=== PATIENT | male | born 1955 | race Hispanic/Latino ===

== ENCOUNTER → 2020-03-21 | Outpatient (CLI) | payer OTHER, MEDICARE | END | disposition home or self-care (01) | LOC: RAH 13:02 | PROVIDERS: ATTEND Internal Medicine | DX: M19.071 Primary osteoarthritis, right ankle and foot (principal); M79.89 Other specified soft tissue disorders; R22.41 Localized swelling, mass and lump, right lower limb | CPT/HCPCS: 73620; 93971 ==

== ENCOUNTER → 2022-03-08 | Outpatient (CLI) | payer OTHER, MEDICARE ==
[~2022-03-08] MED LIST: BACL20TA PO; BISA-72 PO; BUSP10TA3 PO; CHOL100040 PO; CLIN300C3 PO; DEBROX OT; HONEY 1 APPL/ML TUBE TP ONE; KETO-100 OP; LEVE10006 PO; LEVO-70 PO; LIDOCAINE HCL 4% LTA SOL 4 ML VIAL TP ONE; LINA145C PO; LORA0.5T83 PO; LORA10TA7 PO; POLY17PO4 PO; PYRI100L2 PO; QUET200T PO; [UNRECOGNIZED DRUG - CODE] TP
== END | disposition home or self-care (01) ==
LOC: WHH 11:05
PROVIDERS: ATTEND Family Medicine
DX: S61.451A Open bite of right hand, initial encounter (principal); S61.501A Unspecified open wound of right wrist, initial encounter; G80.8 Other cerebral palsy; G40.909 Epilepsy, unspecified, not intractable, without status epilepticus; E78.2 Mixed hyperlipidemia; K58.1 Irritable bowel syndrome with constipation; M19.071 Primary osteoarthritis, right ankle and foot; F41.9 Anxiety disorder, unspecified; F79 Unspecified intellectual disabilities; Z99.3 Dependence on wheelchair; Z79.899 Other long term (current) drug therapy; Z88.0 Allergy status to penicillin; Z88.7 Allergy status to serum and vaccine; X83.8XXA Intentional self-harm by other specified means, initial encounter; Y93.89 Activity, other specified; Y92.89 Other specified places as the place of occurrence of the external cause; Y99.8 Other external cause status
CPT/HCPCS: 11042; A4450

== ENCOUNTER → 2022-03-15 | Outpatient (CLI) | payer OTHER, MEDICARE ==
[~2022-03-15] MED LIST changes: -HONEY 1 APPL/ML TUBE TP ONE
== END | disposition home or self-care (01) ==
LOC: WHH 10:05
PROVIDERS: ATTEND Family Medicine
DX: S61.451D Open bite of right hand, subsequent encounter (principal); S61.501D Unspecified open wound of right wrist, subsequent encounter; S61.401A Unspecified open wound of right hand, initial encounter; G80.8 Other cerebral palsy; G40.909 Epilepsy, unspecified, not intractable, without status epilepticus; E78.2 Mixed hyperlipidemia; K58.1 Irritable bowel syndrome with constipation; M19.071 Primary osteoarthritis, right ankle and foot; F41.9 Anxiety disorder, unspecified; F79 Unspecified intellectual disabilities; Z99.3 Dependence on wheelchair; Z79.899 Other long term (current) drug therapy; Z88.0 Allergy status to penicillin; Z88.7 Allergy status to serum and vaccine; X83.8XXD Intentional self-harm by other specified means, subsequent encounter; X58.XXXA Exposure to other specified factors, initial encounter; Y93.89 Activity, other specified; Y92.89 Other specified places as the place of occurrence of the external cause; Y99.8 Other external cause status
CPT/HCPCS: 11042

== ENCOUNTER → 2022-03-29 | Outpatient (CLI) | payer OTHER, MEDICARE | END | disposition home or self-care (01) | LOC: WHH 09:58 | PROVIDERS: ATTEND Family Medicine | DX: S61.451D Open bite of right hand, subsequent encounter (principal); S61.501D Unspecified open wound of right wrist, subsequent encounter; S61.401D Unspecified open wound of right hand, subsequent encounter; G80.8 Other cerebral palsy; G40.909 Epilepsy, unspecified, not intractable, without status epilepticus; E78.2 Mixed hyperlipidemia; K58.1 Irritable bowel syndrome with constipation; M19.071 Primary osteoarthritis, right ankle and foot; F41.9 Anxiety disorder, unspecified; F79 Unspecified intellectual disabilities; Z99.3 Dependence on wheelchair; Z79.899 Other long term (current) drug therapy; Z88.0 Allergy status to penicillin; Z88.7 Allergy status to serum and vaccine; X83.8XXD Intentional self-harm by other specified means, subsequent encounter; X58.XXXD Exposure to other specified factors, subsequent encounter | CPT/HCPCS: 11042 ==

== ENCOUNTER → 2022-04-05 | Outpatient (CLI) | payer OTHER, MEDICARE | END | disposition home or self-care (01) | LOC: WHH 10:11 | PROVIDERS: ATTEND Family Medicine | DX: S61.451D Open bite of right hand, subsequent encounter (principal); S61.501D Unspecified open wound of right wrist, subsequent encounter; S61.401D Unspecified open wound of right hand, subsequent encounter; G80.8 Other cerebral palsy; G40.909 Epilepsy, unspecified, not intractable, without status epilepticus; E78.2 Mixed hyperlipidemia; K58.1 Irritable bowel syndrome with constipation; M19.071 Primary osteoarthritis, right ankle and foot; F41.9 Anxiety disorder, unspecified; F79 Unspecified intellectual disabilities; Z99.3 Dependence on wheelchair; Z79.899 Other long term (current) drug therapy; Z88.0 Allergy status to penicillin; Z88.7 Allergy status to serum and vaccine; X58.XXXD Exposure to other specified factors, subsequent encounter; X83.8XXD Intentional self-harm by other specified means, subsequent encounter | CPT/HCPCS: 11042 ==

== ENCOUNTER → 2022-04-19 | Outpatient (CLI) | payer OTHER, MEDICARE ==
[~2022-04-19] MED LIST changes: -LIDOCAINE HCL 4% LTA SOL 4 ML VIAL TP ONE
== END | disposition home or self-care (01) ==
LOC: WHH 09:59
PROVIDERS: ATTEND Family Medicine
DX: S61.451D Open bite of right hand, subsequent encounter (principal); S61.551D Open bite of right wrist, subsequent encounter; S61.501D Unspecified open wound of right wrist, subsequent encounter; S61.401D Unspecified open wound of right hand, subsequent encounter; G80.8 Other cerebral palsy; G40.909 Epilepsy, unspecified, not intractable, without status epilepticus; E78.2 Mixed hyperlipidemia; K58.1 Irritable bowel syndrome with constipation; M19.071 Primary osteoarthritis, right ankle and foot; F41.9 Anxiety disorder, unspecified; F79 Unspecified intellectual disabilities; Z99.3 Dependence on wheelchair; Z79.899 Other long term (current) drug therapy; Z88.0 Allergy status to penicillin; Z88.7 Allergy status to serum and vaccine; X58.XXXD Exposure to other specified factors, subsequent encounter; X83.8XXD Intentional self-harm by other specified means, subsequent encounter
CPT/HCPCS: G0463

== ENCOUNTER → 2022-05-10 | Outpatient (CLI) | payer OTHER, MEDICARE ==
[~2022-05-10] MED LIST changes: +LIDOCAINE HCL 4% LTA SOL 4 ML VIAL TP ONE
== END | disposition home or self-care (01) ==
LOC: WHH 10:08
PROVIDERS: ATTEND Family Medicine
DX: S61.401D Unspecified open wound of right hand, subsequent encounter (principal); S61.501D Unspecified open wound of right wrist, subsequent encounter; G80.9 Cerebral palsy, unspecified; G40.909 Epilepsy, unspecified, not intractable, without status epilepticus; E78.2 Mixed hyperlipidemia; K58.1 Irritable bowel syndrome with constipation; M19.071 Primary osteoarthritis, right ankle and foot; F41.9 Anxiety disorder, unspecified; F79 Unspecified intellectual disabilities; Z79.899 Other long term (current) drug therapy; Z99.3 Dependence on wheelchair; X58.XXXD Exposure to other specified factors, subsequent encounter
CPT/HCPCS: 11042; A4450

== ENCOUNTER → 2022-05-17 | Outpatient (CLI) | payer OTHER, MEDICARE | END | disposition home or self-care (01) | LOC: WHH 09:56 | PROVIDERS: ATTEND Family Medicine | DX: S61.401D Unspecified open wound of right hand, subsequent encounter (principal); S61.501D Unspecified open wound of right wrist, subsequent encounter; G80.9 Cerebral palsy, unspecified; G40.909 Epilepsy, unspecified, not intractable, without status epilepticus; E78.2 Mixed hyperlipidemia; K58.1 Irritable bowel syndrome with constipation; M19.071 Primary osteoarthritis, right ankle and foot; F41.9 Anxiety disorder, unspecified; F79 Unspecified intellectual disabilities; Z79.899 Other long term (current) drug therapy; Z99.3 Dependence on wheelchair; X58.XXXD Exposure to other specified factors, subsequent encounter | CPT/HCPCS: G0463; A4450 ==

== ENCOUNTER → 2022-05-24 | Outpatient (CLI) | payer OTHER, MEDICARE ==
[~2022-05-24] MED LIST changes: -LIDOCAINE HCL 4% LTA SOL 4 ML VIAL TP ONE
== END | disposition home or self-care (01) ==
LOC: WHH 09:22
PROVIDERS: ATTEND Family Medicine
DX: S61.401D Unspecified open wound of right hand, subsequent encounter (principal); S61.501D Unspecified open wound of right wrist, subsequent encounter; G80.9 Cerebral palsy, unspecified; G40.909 Epilepsy, unspecified, not intractable, without status epilepticus; E78.2 Mixed hyperlipidemia; K58.1 Irritable bowel syndrome with constipation; M19.071 Primary osteoarthritis, right ankle and foot; F41.9 Anxiety disorder, unspecified; F79 Unspecified intellectual disabilities; Z79.899 Other long term (current) drug therapy; Z99.3 Dependence on wheelchair; X58.XXXD Exposure to other specified factors, subsequent encounter
CPT/HCPCS: G0463

== ENCOUNTER → 2022-07-29 | Outpatient (CLI) | payer OTHER, MEDICARE ==
[~2022-07-29] MED LIST changes: +HONEY 1 APPL/ML TUBE TP ONE; +LIDOCAINE HCL 4% LTA SOL 4 ML VIAL TP ONE
== END | disposition home or self-care (01) ==
LOC: WHH 09:55
PROVIDERS: ATTEND Family Medicine
DX: S61.451D Open bite of right hand, subsequent encounter (principal); G80.9 Cerebral palsy, unspecified; G40.909 Epilepsy, unspecified, not intractable, without status epilepticus; E78.2 Mixed hyperlipidemia; K58.1 Irritable bowel syndrome with constipation; M19.071 Primary osteoarthritis, right ankle and foot; F41.9 Anxiety disorder, unspecified; F79 Unspecified intellectual disabilities; Z79.899 Other long term (current) drug therapy; Z99.3 Dependence on wheelchair; W50.3XXD Accidental bite by another person, subsequent encounter
CPT/HCPCS: G0463

== ENCOUNTER → 2022-08-05 | Outpatient (CLI) | payer OTHER, MEDICARE ==
[~2022-08-05] MED LIST changes: -HONEY 1 APPL/ML TUBE TP ONE; -LIDOCAINE HCL 4% LTA SOL 4 ML VIAL TP ONE
== END | disposition home or self-care (01) ==
LOC: WHH 13:37
PROVIDERS: ATTEND Family Medicine
DX: S61.451D Open bite of right hand, subsequent encounter (principal); S61.501D Unspecified open wound of right wrist, subsequent encounter; G80.9 Cerebral palsy, unspecified; G40.909 Epilepsy, unspecified, not intractable, without status epilepticus; E78.2 Mixed hyperlipidemia; K58.1 Irritable bowel syndrome with constipation; M19.071 Primary osteoarthritis, right ankle and foot; F41.9 Anxiety disorder, unspecified; F79 Unspecified intellectual disabilities; Z79.899 Other long term (current) drug therapy; Z99.3 Dependence on wheelchair; Y04.1XXD Assault by human bite, subsequent encounter
CPT/HCPCS: G0463

== ENCOUNTER → 2022-08-12 | Outpatient (CLI) | payer OTHER, MEDICARE ==
[~2022-08-12] MED LIST changes: +LIDOCAINE HCL 4% LTA SOL 4 ML VIAL TP ONE
== END | disposition home or self-care (01) ==
LOC: WHH 10:08
PROVIDERS: ATTEND Family Medicine
DX: S61.451D Open bite of right hand, subsequent encounter (principal); S61.501D Unspecified open wound of right wrist, subsequent encounter; S61.401D Unspecified open wound of right hand, subsequent encounter; G80.9 Cerebral palsy, unspecified; G40.909 Epilepsy, unspecified, not intractable, without status epilepticus; E78.2 Mixed hyperlipidemia; K58.1 Irritable bowel syndrome with constipation; M19.071 Primary osteoarthritis, right ankle and foot; F41.9 Anxiety disorder, unspecified; F79 Unspecified intellectual disabilities; Z79.899 Other long term (current) drug therapy; Z99.3 Dependence on wheelchair; Y04.1XXD Assault by human bite, subsequent encounter
CPT/HCPCS: G0463

== ENCOUNTER → 2022-08-26 | Outpatient (CLI) | payer OTHER, MEDICARE | END | disposition home or self-care (01) | LOC: WHH 10:11 | PROVIDERS: ATTEND Family Medicine | DX: S61.451D Open bite of right hand, subsequent encounter (principal); S61.501D Unspecified open wound of right wrist, subsequent encounter; S61.401D Unspecified open wound of right hand, subsequent encounter; G80.9 Cerebral palsy, unspecified; G40.909 Epilepsy, unspecified, not intractable, without status epilepticus; E78.5 Hyperlipidemia, unspecified; K58.1 Irritable bowel syndrome with constipation; M19.071 Primary osteoarthritis, right ankle and foot; F41.9 Anxiety disorder, unspecified; F79 Unspecified intellectual disabilities; Z79.899 Other long term (current) drug therapy; Z99.3 Dependence on wheelchair; Y04.1XXD Assault by human bite, subsequent encounter | CPT/HCPCS: 11042; A6021; A6197; A4450 ==

== ENCOUNTER → 2022-09-02 | Outpatient (CLI) | payer OTHER, MEDICARE ==
[~2022-09-02] MED LIST changes: -LIDOCAINE HCL 4% LTA SOL 4 ML VIAL TP ONE
== END | disposition home or self-care (01) ==
LOC: WHH 10:04
PROVIDERS: ATTEND Family Medicine
DX: S61.451D Open bite of right hand, subsequent encounter (principal); S61.501D Unspecified open wound of right wrist, subsequent encounter; S61.401D Unspecified open wound of right hand, subsequent encounter; G80.9 Cerebral palsy, unspecified; G40.909 Epilepsy, unspecified, not intractable, without status epilepticus; E78.5 Hyperlipidemia, unspecified; K58.1 Irritable bowel syndrome with constipation; M19.071 Primary osteoarthritis, right ankle and foot; F41.9 Anxiety disorder, unspecified; F79 Unspecified intellectual disabilities; Z79.899 Other long term (current) drug therapy; Z99.3 Dependence on wheelchair; Y04.1XXD Assault by human bite, subsequent encounter
CPT/HCPCS: G0463

== ENCOUNTER → 2022-09-16 | Outpatient (CLI) | payer OTHER, MEDICARE | END | disposition home or self-care (01) | LOC: WHH 10:04 | PROVIDERS: ATTEND Family Medicine | DX: S61.451D Open bite of right hand, subsequent encounter (principal); S61.551D Open bite of right wrist, subsequent encounter; S61.501D Unspecified open wound of right wrist, subsequent encounter; S61.401D Unspecified open wound of right hand, subsequent encounter; G80.9 Cerebral palsy, unspecified; G40.909 Epilepsy, unspecified, not intractable, without status epilepticus; E78.5 Hyperlipidemia, unspecified; K58.1 Irritable bowel syndrome with constipation; M19.071 Primary osteoarthritis, right ankle and foot; F41.9 Anxiety disorder, unspecified; F79 Unspecified intellectual disabilities; Z79.899 Other long term (current) drug therapy; Z99.3 Dependence on wheelchair; Y04.1XXD Assault by human bite, subsequent encounter | CPT/HCPCS: G0463; A6209; A4450 ==

== ENCOUNTER → 2022-10-07 | Outpatient (CLI) | payer OTHER, MEDICARE ==
[~2022-10-07] MED LIST changes: +HONEY 1 APPL/ML TUBE TP ONE; +LIDOCAINE HCL 4% LTA SOL 4 ML VIAL TP ONE
== END | disposition home or self-care (01) ==
LOC: WHH 10:32
PROVIDERS: ATTEND Family Medicine
DX: L89.892 Pressure ulcer of other site, stage 2 (principal); S61.451D Open bite of right hand, subsequent encounter; S61.551D Open bite of right wrist, subsequent encounter; S61.501D Unspecified open wound of right wrist, subsequent encounter; S61.401D Unspecified open wound of right hand, subsequent encounter; G80.9 Cerebral palsy, unspecified; G40.909 Epilepsy, unspecified, not intractable, without status epilepticus; E78.5 Hyperlipidemia, unspecified; K58.1 Irritable bowel syndrome with constipation; M19.071 Primary osteoarthritis, right ankle and foot; F41.9 Anxiety disorder, unspecified; F79 Unspecified intellectual disabilities; Z79.899 Other long term (current) drug therapy; Z99.3 Dependence on wheelchair; Y04.1XXD Assault by human bite, subsequent encounter
CPT/HCPCS: 11042; A6209

== ENCOUNTER → 2022-10-14 | Outpatient (CLI) | payer OTHER, MEDICARE | END | disposition home or self-care (01) | LOC: WHH 09:54 | PROVIDERS: ATTEND Family Medicine | DX: S61.451D Open bite of right hand, subsequent encounter (principal); S61.551D Open bite of right wrist, subsequent encounter; L89.892 Pressure ulcer of other site, stage 2; G80.9 Cerebral palsy, unspecified; G40.909 Epilepsy, unspecified, not intractable, without status epilepticus; E78.5 Hyperlipidemia, unspecified; K58.1 Irritable bowel syndrome with constipation; M19.071 Primary osteoarthritis, right ankle and foot; F41.9 Anxiety disorder, unspecified; F79 Unspecified intellectual disabilities; Z79.899 Other long term (current) drug therapy; Z99.3 Dependence on wheelchair; Y04.1XXD Assault by human bite, subsequent encounter | CPT/HCPCS: G0463; A6209 ==

== ENCOUNTER → 2022-11-04 | Outpatient (CLI) | payer OTHER, MEDICARE ==
[~2022-11-04] MED LIST changes: -HONEY 1 APPL/ML TUBE TP ONE
== END | disposition home or self-care (01) ==
LOC: WHH 09:53
PROVIDERS: ATTEND Nurse Practitioner Family
DX: S61.451D Open bite of right hand, subsequent encounter (principal); S61.551D Open bite of right wrist, subsequent encounter; L89.892 Pressure ulcer of other site, stage 2; G80.9 Cerebral palsy, unspecified; G40.909 Epilepsy, unspecified, not intractable, without status epilepticus; E78.5 Hyperlipidemia, unspecified; K58.1 Irritable bowel syndrome with constipation; M19.071 Primary osteoarthritis, right ankle and foot; F41.9 Anxiety disorder, unspecified; F79 Unspecified intellectual disabilities; Z79.899 Other long term (current) drug therapy; Z99.3 Dependence on wheelchair; Y04.1XXD Assault by human bite, subsequent encounter
CPT/HCPCS: G0463; A6209; A4450

== ENCOUNTER → 2022-11-25 | Outpatient (CLI) | payer OTHER, MEDICARE | END | disposition home or self-care (01) | LOC: WHH 10:38 | PROVIDERS: ATTEND Nurse Practitioner Family | DX: S61.451D Open bite of right hand, subsequent encounter (principal); S61.551D Open bite of right wrist, subsequent encounter; L89.892 Pressure ulcer of other site, stage 2; G80.9 Cerebral palsy, unspecified; G40.909 Epilepsy, unspecified, not intractable, without status epilepticus; E78.5 Hyperlipidemia, unspecified; K58.1 Irritable bowel syndrome with constipation; M19.071 Primary osteoarthritis, right ankle and foot; F41.9 Anxiety disorder, unspecified; Z99.3 Dependence on wheelchair; Z79.899 Other long term (current) drug therapy; Y04.1XXD Assault by human bite, subsequent encounter | CPT/HCPCS: G0463 ==

== ENCOUNTER → 2022-12-09 | Outpatient (CLI) | payer OTHER, MEDICARE ==
[~2022-12-09] MED LIST changes: -LIDOCAINE HCL 4% LTA SOL 4 ML VIAL TP ONE
== END | disposition home or self-care (01) ==
LOC: WHH 10:22
PROVIDERS: ATTEND Nurse Practitioner Family
DX: S61.451D Open bite of right hand, subsequent encounter (principal); S61.551D Open bite of right wrist, subsequent encounter; L89.892 Pressure ulcer of other site, stage 2; G80.9 Cerebral palsy, unspecified; G40.909 Epilepsy, unspecified, not intractable, without status epilepticus; E78.5 Hyperlipidemia, unspecified; K58.1 Irritable bowel syndrome with constipation; G83.9 Paralytic syndrome, unspecified; M19.071 Primary osteoarthritis, right ankle and foot; F41.9 Anxiety disorder, unspecified; Z99.3 Dependence on wheelchair; Z79.899 Other long term (current) drug therapy; Y04.1XXD Assault by human bite, subsequent encounter
CPT/HCPCS: G0463

== ENCOUNTER 2022-12-23 10:19 | Emergency (ER) | payer OTHER, MEDICARE ==
[~2022-12-23] VITALS: Ht 162.6 cm; Wt 63.5 kg
[2022-12-23 11:22] LABS: BASOPHILS % (AUTO) 0.2 % (0.0-5.0); EOSINOPHILS % (AUTO) 0.4 % (0.0-8.0); HEMATOCRIT 39.9 % (42-54); LYMPHOCYTES % (AUTO) 12.4 % (21.0-51.0); MEAN CORPUSCULAR HEMOGLOBIN 31.8 pg (27.0-33.0); MEAN CORPUSCULAR HGB CONC 35.3 g/dL (32.0-36.0); MEAN CORPUSCULAR VOLUME 90.1 fL (79-99); NEUTROPHILS % (AUTO) 70.8 % (40.0-77.0); PLATELET COUNT (AUTO) 107 K/uL (130-400); RED BLOOD CELL COUNT(AUTO) 4.43 MIL/uL (4.50-6.20); RED CELL DISTRIBUTION WIDTH 14.7 % (11.0-15.5)
[2022-12-23] MEDS ORDERED: KETOROLAC 15MG/ML VIAL (15MG/ML) IV ONE (12:00)
[2022-12-23 12:24] LABS: ALBUMIN 3.2 g/dL (3.5-5.0); CREATININE 0.7 mg/dL (0.5-1.5); TOTAL PROTEIN, SERUM 7.2 g/dL (6.0-8.3)
[2022-12-23 12:48] LABS: APPEARANCE,URINE CLEAR (CLEAR); BILIRUBIN,URINE NEGATIVE (NEGATIVE); COLOR,URINE YELLOW (YELLOW); GLUCOSE, URINE (UA) NEGATIVE (NEGATIVE); KETONES,URINE 10 mg/dL (NEGATIVE); LEUKOCYTE ESTERASE ,URINE NEGATIVE Leu/uL (NEGATIVE); NITRATE,URINE NEGATIVE (NEGATIVE); OCCULT BLOOD,URINE NEGATIVE (NEGATIVE); PROTEIN,URINE 10 mg/dL (NEGATIVE); UROBILINOGEN,URINE 0.2 mg/dL (0.2-1.0)
[2022-12-23 13:00] VITALS: BP 149/91
[2022-12-23 13:10] LABS: RBC,URINE 0-1 /HPF (0-1); SQUAMOUS EPITHELIAL CELL,UR RARE /HPF (0-2)
[2022-12-23] MEDS ORDERED: IBUP100O20 PO (15:25)
== END 2022-12-23 16:00 | disposition home or self-care (01) ==
LOC: EDH 10:19
DX: M79.641 Pain in right hand (principal); F79 Unspecified intellectual disabilities; Z79.899 Other long term (current) drug therapy; Z88.0 Allergy status to penicillin; Z88.7 Allergy status to serum and vaccine
CPT/HCPCS: 99285; 70450; 96374; 71045; 80053; 85025; 81001; 36415; 72170; 71250; 74176; J1885

== ENCOUNTER → 2023-02-02 | Outpatient (CLI) | payer OTHER, MEDICARE ==
[~2023-02-02] MED LIST changes: +IBUP100O20 PO
== END | disposition home or self-care (01) ==
LOC: RAH 10:00
PROVIDERS: ATTEND Internal Medicine Gastroenterology
DX: R94.5 Abnormal results of liver function studies (principal); D69.6 Thrombocytopenia, unspecified
CPT/HCPCS: 76700

== ENCOUNTER 2023-02-19 17:11 | Inpatient (IN) | payer MEDICARE, OTHER ==
[~2023-02-19] VITALS: Ht 162.6 cm; Wt 72.0 kg
[2023-02-19 17:26] VITALS: PULSE 111; RESP 18; O2SAT 93
[2023-02-19 17:48] LABS: BASOPHILS # (AUTO) 0.02 K/uL (0.00-0.20); BASOPHILS % (AUTO) 0.7 % (0.0-5.0); HEMATOCRIT 35.8 % (42-54); IMMATURE GRANULOCYTE ABSOLUTE 0.02 K/uL (0-1); LYMPHOCYTES # (AUTO) 0.3 K/uL (1.0-4.8); LYMPHOCYTES % (AUTO) 8.6 % (21.0-51.0); MEAN CORPUSCULAR HEMOGLOBIN 32.2 pg (27.0-33.0); MEAN CORPUSCULAR HGB CONC 34.4 g/dL (32.0-36.0); MEAN CORPUSCULAR VOLUME 93.7 fL (79-99); MONOCYTES # (AUTO) 0.3 K/uL (0.1-1.0); MONOCYTES % (AUTO) 10.3 % (3.0-13.0); NEUTROPHILS # (AUTO) 2.3 K/uL (1.8-7.7); NEUTROPHILS % (AUTO) 79.7 % (40.0-77.0); NUCLEATED RED BLOOD CELLS 0.7 % (0.0-0.19); PLATELET COUNT (AUTO) 79 K/uL (130-400); RED BLOOD CELL COUNT(AUTO) 3.82 MIL/uL (4.50-6.20); RED CELL DISTRIBUTION WIDTH 14.8 % (11.0-15.5); WHITE BLOOD COUNT (AUTO) 2.9 K/uL (4.8-10.8)
[2023-02-19 17:50] LABS: RAPID GROUP A STREP negative (NEGATIVE)
[2023-02-19 17:52] LABS: SARS-CoV-2, RNA, NAAT NEGATIVE SARS CoV-2 (NEGATIVE)
[2023-02-19 17:59] LABS: INFLUENZA TYPE A Negative For Type A (NEGATIVE); INFLUENZA TYPE B Negative For Type B (NEGATIVE)
[2023-02-19] MEDS ORDERED: IPRATROPIUM/ALBUTEROL SULFATE 3 ML SOLUTION IH ONE ×2 (18:00→22:56)
[2023-02-19] MEDS ORDERED: SOLU-MEDROL 125MG VIAL IVP ONE (18:00)
[2023-02-19 18:03] LABS: ADD UA MICROSCOPIC YES; APPEARANCE,URINE CLOUDY (CLEAR); BILIRUBIN,URINE NEGATIVE (NEGATIVE); COLOR,URINE DARK YELLOW (YELLOW); GLUCOSE, URINE (UA) NEGATIVE (NEGATIVE); KETONES,URINE NEGATIVE (NEGATIVE); LEUKOCYTE ESTERASE ,URINE 75 Leu/uL (NEGATIVE); NITRATE,URINE NEGATIVE (NEGATIVE); OCCULT BLOOD,URINE NEGATIVE (NEGATIVE); PH,URINE 5.5 (5.0-8.0); PROTEIN,URINE 20 mg/dL (NEGATIVE); UROBILINOGEN,URINE 0.2 mg/dL (0.2-1.0)
[2023-02-19 18:11] LABS: BACTERIA,URINE MOD /HPF (None Seen); MUCUS,URINE RARE LPF (None Seen); RBC,URINE 0-1 /HPF (0-1)
[2023-02-19 18:23] LABS: ALBUMIN 2.6 g/dL (3.5-5.0); BILIRUBIN,TOTAL 0.8 mg/dL (0.2-1.0); CREATININE 1.1 mg/dL (0.5-1.5); MAGNESIUM 1.6 mg/dL (1.80-2.40); POTASSIUM 4.4 mmol/L (3.5-5.1); TOTAL PROTEIN, SERUM 6.8 g/dL (6.0-8.3)
[2023-02-19] MEDS ORDERED: LACT10SO5 PEG (18:41)
[2023-02-19] MEDS ORDERED: FAMO20TA8 PEG (18:41)
[2023-02-19] MEDS ORDERED: ALBU0.63 IH (18:41)
[2023-02-19] MEDS ORDERED: CLOT15CR23 TP (18:41)
[2023-02-19] MEDS ORDERED: BACL10TA PEG (18:41)
[2023-02-19] MEDS ORDERED: DIAZEPAM GEL TP (18:41)
[2023-02-19] MEDS ORDERED: DIAZEPAM (18:41)
[2023-02-19] MEDS ORDERED: DIAZEPAM 5 MG/ML RC (18:41)
[2023-02-19] MEDS ORDERED: VANCOMYCIN KIT 1 GM/250 ML IV.KIT IV ONE (19:00)
[2023-02-19] MEDS ORDERED: CEFEPIME HCL 2 GM VIAL IVPB SCH (19:00)
[2023-02-19] MEDS ORDERED: 0.9% NACL 500ML IV.SOLN 500 ML IV ONE (19:30)
[2023-02-19 20:03] VITALS: PULSE 99; RESP 19
[2023-02-19 20:11] LABS: ABG BASE EXCESS -4.7 mmol/L (-2.0-3.0); ABG HCO3 21.7 mmol/L (21.0-28.0); ABG OXYGEN SATURATION 98.4 % (95.0-99.0); ABG PCO2 45 mmHg (35-48); ABG PH 7.301 (7.35-7.450); PO2, ARTERIAL BG 135.5 mmHg (83.0-108.0); VENT MODE, BG NRBM (ROOM AIR)
[2023-02-19 20:25] LABS: BAND NEUTROPHILS % (MANUAL) 10 % (0-2); LYMPHOCYTES % (MANUAL) 19 % (22-44); METAMYELOCYTES % 32 % (0-0); MONOCYTES % (MANUAL) 6 % (2-9); SEGMENTED NEUTROPHILS % 33 % (40-70); TOTAL CELLS COUNTED 100
[2023-02-19 20:26] LABS: MAN.DIFF COMMENT-IMPRESSION MANUAL DIFFERENTIAL; PLATELET MORPHOLOGY COMMENT DECREASED; WBC MORPHOLOGY SMUDGE CELLS 1+
[2023-02-19] MEDS ORDERED: ONDANSETRON 4MG INJ IVP PRN (20:30)
[2023-02-19] MEDS ORDERED: VANCOMYCIN PROTOCOL PER PHARMACY IV SCH (20:30)
[2023-02-19] MEDS ORDERED: ACETAMINOPHEN 325 MG TAB PO PRN (20:30)
[2023-02-19] MEDS: 0.9%NACL 1000ML 1,000 ML IV SCH (21:03)
[2023-02-19] MEDS ORDERED: DEXTROSE 50%-WATER 50 ML DISP.SYRIN IV PRN (22:00)
[2023-02-19] MEDS ORDERED: POTASSIUM CHLORIDE 20MEQ/100ML 100 ML IV PRN ×2 (22:00)
[2023-02-19] MEDS ORDERED: GLUCAGON 1MG KIT 1 MG ML IM PRN (22:00)
[2023-02-19] MEDS ORDERED: KCL 20 MEQ ERTAB PO PRN (22:00)
[2023-02-19] MEDS ORDERED: POTASSIUM PHOS 15 mMOL+NS250ML 250 ML IV PRN (22:00)
[2023-02-19 23:01] VITALS: PULSE 89; RESP 18; O2SAT 100
[2023-02-20] VITALS (64 sets, daily range): BP systolic 81–159; BP diastolic 24–108; PULSE 59–114; RESP 13–71; O2SAT 90–100
[2023-02-20] MEDS: CEFEPIME HCL 2 GM VIAL IVPB SCH ×3 (03:42→20:52)
[2023-02-20] MEDS ORDERED: LORAZEPAM 2 MG/ML 1 ML VIAL ONE (04:41)
[2023-02-20] MEDS ORDERED: LEVETIRACETAM 500 MG/5 ML SD VIAL IV ONE ×2 (04:46→05:00)
[2023-02-20] MEDS ORDERED: NOREPINEPHRIN 4MG/NS 250ML 250 ML IV ONE (04:57)
[2023-02-20] MEDS ORDERED: NOREPINEPHRIN 4MG/NS 250ML 250 ML IV SCH (05:00)
[2023-02-20] MEDS ORDERED: LORAZEPAM 2 MG/ML 1 ML VIAL IVP ONE (05:00)
[2023-02-20] MEDS: LORAZEPAM 2 MG/ML 1 ML VIAL IVP PRN ×2 (05:10→08:27)
[2023-02-20] MEDS: 0.9%NACL 1000ML 1,000 ML IV SCH ×3 (05:19→20:30)
[2023-02-20] MEDS: IPRATROPIUM/ALBUTEROL SULFATE 3 ML SOLUTION IH SCH ×4 (07:05→23:14)
[2023-02-20] MEDS: SOLU-MEDROL 40MG VIAL IVP SCH ×2 (08:28→20:52)
[2023-02-20] MEDS: VANCOMYCIN 1G/250ML KIT 250 ML IV SCH ×2 (08:29→20:52)
[2023-02-20 09:19] LABS: ABG BASE EXCESS -0.2 mmol/L (-2.0-3.0); ABG HCO3 23.3 mmol/L (21.0-28.0); ABG OXYGEN SATURATION 99.3 % (95.0-99.0); ABG PCO2 35 mmHg (35-48); ABG PH 7.444 (7.35-7.450); PO2, ARTERIAL BG 183.5 mmHg (83.0-108.0); VENT MODE, BG PNRM (ROOM AIR)
[2023-02-20 09:26] LABS: BASOPHILS # (AUTO) 0.09 K/uL (0.00-0.20); BASOPHILS % (AUTO) 0.8 % (0.0-5.0); HEMATOCRIT 29.2 % (42-54); LYMPHOCYTES # (AUTO) 0.3 K/uL (1.0-4.8); LYMPHOCYTES % (AUTO) 2.8 % (21.0-51.0); MEAN CORPUSCULAR HEMOGLOBIN 31.9 pg (27.0-33.0); MEAN CORPUSCULAR HGB CONC 34.2 g/dL (32.0-36.0); MEAN CORPUSCULAR VOLUME 93.3 fL (79-99); MONOCYTES # (AUTO) 0.9 K/uL (0.1-1.0); MONOCYTES % (AUTO) 8.1 % (3.0-13.0); NEUTROPHILS # (AUTO) 10.1 K/uL (1.8-7.7); NEUTROPHILS % (AUTO) 86.6 % (40.0-77.0); PLATELET COUNT (AUTO) 71 K/uL (130-400); RED BLOOD CELL COUNT(AUTO) 3.13 MIL/uL (4.50-6.20); RED CELL DISTRIBUTION WIDTH 14.9 % (11.0-15.5); WHITE BLOOD COUNT (AUTO) 11.6 K/uL (4.8-10.8)
[2023-02-20 09:33] LABS: CREATININE 0.9 mg/dL (0.5-1.5); POTASSIUM 4.5 mmol/L (3.5-5.1)
[2023-02-20 09:43] LABS: ALBUMIN 2.1 g/dL (3.5-5.0); BILIRUBIN,TOTAL 0.7 mg/dL (0.2-1.0); MAGNESIUM 1.7 mg/dL (1.80-2.40); TOTAL PROTEIN, SERUM 5.8 g/dL (6.0-8.3)
[2023-02-20] MEDS ORDERED: FAMOTIDINE 20MG VIAL IV ONE (11:30)
[2023-02-20] MEDS ORDERED: LACTULOSE 20 GM/30 ML UDCUP PEG PRN (11:30)
[2023-02-20] MEDS ORDERED: DEBROX 6.5% TP SCH (12:00)
[2023-02-20] MEDS ORDERED: 0.9%NACL 1000ML 1,185 ML IV ONE (12:00)
[2023-02-20] MEDS ORDERED: ZINC OXIDE OINT 30GM TUBE TP PRN (12:00)
[2023-02-20] MEDS ORDERED: POLYETHYLENE GLYCOL 3350 17 GM POWD.PACK PO ONE (12:00)
[2023-02-20] MEDS ORDERED: MAGNESIUM 2GM PREMIX 50ML 50 ML IV PRN (13:30)
[2023-02-20] MEDS: CHLORHEXIDINE GLUCONATE 473 ML MOUTHWASH MM SCH ×2 (13:55→17:57)
[2023-02-20] MEDS: LEVETIRACETAM 500 MG in 0.9%NACL 100ML 100 ML IV SCH ×2 (13:55→20:53)
[2023-02-20] MEDS: METRONIDAZOLE 500MG/100ML BAG 100 ML IVPB SCH ×2 (15:11→20:54)
[2023-02-20 20:16] LABS: INR 1.11 (0.85-1.15); PROTHROMBIN TIME 12.8 SEC (9.6-11.6)
[2023-02-20 20:17] LABS: PARTIAL THROMBOPLASTIN TIME 39.3 SEC (26.3-35.5)
[2023-02-20] MEDS: BACLOFEN 10 MG TABLET PEG SCH (20:53)
[2023-02-20] MEDS: PYRIDOXINE HCL 50 MG TABLET PO SCH (20:53)
[2023-02-20] MEDS: ARTIFICIAL TEARS 3.5 GM OINTMENT OU SCH (21:17)
[2023-02-21] VITALS (21 sets, daily range): BP systolic 112–147; BP diastolic 51–102; PULSE 72–100; RESP 16–34; O2SAT 93–96
[2023-02-21] MEDS: CEFEPIME HCL 2 GM VIAL IVPB SCH ×3 (03:30→19:56)
[2023-02-21] MEDS: CHLORHEXIDINE GLUCONATE 473 ML MOUTHWASH MM SCH ×4 (06:00→17:41)
[2023-02-21] MEDS: METRONIDAZOLE 500MG/100ML BAG 100 ML IVPB SCH ×3 (06:00→22:58)
[2023-02-21] MEDS: LEVETIRACETAM 500 MG in 0.9%NACL 100ML 100 ML IV SCH (06:00)
[2023-02-21] MEDS ORDERED: FAMOTIDINE 20MG VIAL IV SCH (09:00)
[2023-02-21] MEDS: BISACODYL 5 MG TABLET.DR PO SCH (09:00)
[2023-02-21] MEDS: POLYETHYLENE GLYCOL 3350 17 GM POWD.PACK PO SCH (09:00)
[2023-02-21] MEDS: SOLU-MEDROL 40MG VIAL IVP SCH ×2 (09:00→19:56)
[2023-02-21] MEDS: FAMOTIDINE 20MG TAB PEG SCH (09:00)
[2023-02-21] MEDS: LEVETIRACETAM 500 MG TABLET PO SCH ×2 (09:00→19:57)
[2023-02-21] MEDS: BACLOFEN 10 MG TABLET PEG SCH ×2 (09:00→19:57)
[2023-02-21] MEDS: PYRIDOXINE HCL 50 MG TABLET PO SCH ×2 (09:00→19:58)
[2023-02-21 10:29] LABS: % IRON SATURATION 34.9 % (30-44)
[2023-02-21] MEDS ORDERED: ALBU2.5V2 IH (11:26)
[2023-02-21] MEDS ORDERED: LORA10TA7 PO (11:26)
[2023-02-21] MEDS ORDERED: QUET300T2 PO (11:26)
[2023-02-21] MEDS ORDERED: LACT10SO5 PEG (11:26)
[2023-02-21] MEDS: IPRATROPIUM/ALBUTEROL SULFATE 3 ML SOLUTION IH SCH ×3 (11:54→23:26)
[2023-02-21] MEDS: 0.9%NACL 1000ML 1,000 ML IV SCH ×2 (12:17→12:26)
[2023-02-21] MEDS: VANCOMYCIN 1G/250ML KIT 250 ML IV SCH ×2 (12:21→19:57)
[2023-02-21] MEDS: ACETAMINOPHEN 325 MG TAB PO PRN (13:38)
[2023-02-21] MEDS: BUSPIRONE HCL 5 MG TABLET PO SCH ×2 (13:40→19:58)
[2023-02-21 14:38] LABS: BASOPHILS # (AUTO) 0.02 K/uL (0.00-0.20); BASOPHILS % (AUTO) 0.2 % (0.0-5.0); HEMATOCRIT 24.6 % (42-54); IMMATURE GRANULOCYTE ABSOLUTE 0.07 K/uL (0-1); LYMPHOCYTES # (AUTO) 0.4 K/uL (1.0-4.8); LYMPHOCYTES % (AUTO) 4.7 % (21.0-51.0); MEAN CORPUSCULAR HEMOGLOBIN 32.3 pg (27.0-33.0); MEAN CORPUSCULAR HGB CONC 34.6 g/dL (32.0-36.0); MEAN CORPUSCULAR VOLUME 93.5 fL (79-99); MONOCYTES # (AUTO) 0.8 K/uL (0.1-1.0); MONOCYTES % (AUTO) 8.6 % (3.0-13.0); NEUTROPHILS # (AUTO) 7.7 K/uL (1.8-7.7); NEUTROPHILS % (AUTO) 85.7 % (40.0-77.0); NUCLEATED RED BLOOD CELLS 0.2 % (0.0-0.19); PLATELET COUNT (AUTO) 57 K/uL (130-400); RED BLOOD CELL COUNT(AUTO) 2.63 MIL/uL (4.50-6.20); RED CELL DISTRIBUTION WIDTH 15.1 % (11.0-15.5)
[2023-02-21] MEDS: POTASSIUM CHLORIDE 10% ELIXIR 20 MEQ/15 ML UDCUP PO PRN ×3 (14:49→17:41)
[2023-02-21 15:51] LABS: ALBUMIN 1.9 g/dL (3.5-5.0); BILIRUBIN,TOTAL 0.6 mg/dL (0.2-1.0); CREATININE 0.7 mg/dL (0.5-1.5); POTASSIUM 3.2 mmol/L (3.5-5.1); TOTAL PROTEIN, SERUM 5.4 g/dL (6.0-8.3)
[2023-02-21 15:55] LABS: RETICULOCYTE % (AUTO) 1.62 % (0.42-2.23)
[2023-02-21 16:07] LABS: MAGNESIUM 1.5 mg/dL (1.80-2.40)
[2023-02-21] MEDS: ARTIFICIAL TEARS 3.5 GM OINTMENT OU SCH (20:21)
[2023-02-21] MEDS ORDERED: IRON SUCROSE COMPLEX 300 MG in 0.9% NACL 250ML 250 ML IV ONE (21:00)
[2023-02-21] MEDS: ACETYLCYSTEINE 10% 100MG/ML 4ML VIAL IH SCH (23:26)
[2023-02-22] VITALS (16 sets, daily range): BP systolic 105–133; BP diastolic 60–74; PULSE 81–99; RESP 20–24; TEMP 100; O2SAT 90–99
[2023-02-22] MEDS: CHLORHEXIDINE GLUCONATE 473 ML MOUTHWASH MM SCH ×4 (00:36→17:09)
[2023-02-22 03:43] LABS: HEMATOCRIT 25.9 % (42-54); MEAN CORPUSCULAR HEMOGLOBIN 32.4 pg (27.0-33.0); MEAN CORPUSCULAR HGB CONC 34.7 g/dL (32.0-36.0); MEAN CORPUSCULAR VOLUME 93.2 fL (79-99); NUCLEATED RED BLOOD CELLS 0.6 % (0.0-0.19); RED BLOOD CELL COUNT(AUTO) 2.78 MIL/uL (4.50-6.20); RED CELL DISTRIBUTION WIDTH 15.4 % (11.0-15.5); WHITE BLOOD COUNT (AUTO) 13.6 K/uL (4.8-10.8)
[2023-02-22] MEDS: CEFEPIME HCL 2 GM VIAL IVPB SCH ×3 (03:57→21:01)
[2023-02-22] MEDS: 0.9%NACL 1000ML 1,000 ML IV SCH (03:57)
[2023-02-22 04:08] LABS: ALBUMIN 1.9 g/dL (3.5-5.0); BILIRUBIN,TOTAL 0.6 mg/dL (0.2-1.0); CREATININE 0.7 mg/dL (0.5-1.5); POTASSIUM 3.3 mmol/L (3.5-5.1); TOTAL PROTEIN, SERUM 5.6 g/dL (6.0-8.3)
[2023-02-22] MEDS: POTASSIUM CHLORIDE 10% ELIXIR 20 MEQ/15 ML UDCUP PO PRN (05:55)
[2023-02-22] MEDS: METRONIDAZOLE 500MG/100ML BAG 100 ML IVPB SCH ×3 (05:55→22:24)
[2023-02-22] MEDS: IPRATROPIUM/ALBUTEROL SULFATE 3 ML SOLUTION IH SCH ×4 (06:30→23:07)
[2023-02-22] MEDS: ACETYLCYSTEINE 10% 100MG/ML 4ML VIAL IH SCH ×4 (06:30→23:07)
[2023-02-22] MEDS: ACETAMINOPHEN 325 MG TAB PO PRN (06:40)
[2023-02-22] MEDS: POLYETHYLENE GLYCOL 3350 17 GM POWD.PACK PO SCH (07:33)
[2023-02-22] MEDS: BISACODYL 5 MG TABLET.DR PO SCH (07:33)
[2023-02-22] MEDS: VANCOMYCIN 1G/250ML KIT 250 ML IV SCH ×2 (07:45→21:02)
[2023-02-22] MEDS: SOLU-MEDROL 40MG VIAL IVP SCH ×2 (07:46→21:02)
[2023-02-22] MEDS: ENOXAPARIN SODIUM 40 MG/0.4 ML SYRINGE SQ SCH (07:47)
[2023-02-22] MEDS: BACLOFEN 10 MG TABLET PEG SCH ×2 (07:47→21:03)
[2023-02-22] MEDS: PYRIDOXINE HCL 50 MG TABLET PO SCH ×2 (07:48→21:03)
[2023-02-22] MEDS: FAMOTIDINE 20MG TAB PEG SCH (07:48)
[2023-02-22] MEDS: LEVETIRACETAM 500 MG TABLET PO SCH ×2 (07:48→21:03)
[2023-02-22] MEDS: BUSPIRONE HCL 5 MG TABLET PO SCH ×3 (07:51→21:03)
[2023-02-22] MEDS ORDERED: IRON SUCROSE COMPLEX 300 MG in 0.9% NACL 250ML 250 ML IV ONE (09:00)
[2023-02-22] MEDS ORDERED: PREDNISONE 20 MG TABLET PEG SCH (21:00)
[2023-02-22] MEDS: ARTIFICIAL TEARS 3.5 GM OINTMENT OU SCH (21:02)
[2023-02-23] VITALS (14 sets, daily range): BP systolic 115–143; BP diastolic 62–76; PULSE 75–97; RESP 20–28; O2SAT 89–98
[2023-02-23] MEDS: IPRATROPIUM 0.5 MG/2.5 ML INH IH SCH
[2023-02-23] MEDS: CHLORHEXIDINE GLUCONATE 473 ML MOUTHWASH MM SCH ×4 (01:51→17:07)
[2023-02-23] MEDS: CEFEPIME HCL 2 GM VIAL IVPB SCH ×2 (03:21→11:14)
[2023-02-23] MEDS: METRONIDAZOLE 500MG/100ML BAG 100 ML IVPB SCH ×2 (05:37→14:12)
[2023-02-23] MEDS: IPRATROPIUM/ALBUTEROL SULFATE 3 ML SOLUTION IH SCH ×2 (07:06→11:04)
[2023-02-23] MEDS: ACETYLCYSTEINE 10% 100MG/ML 4ML VIAL IH SCH ×4 (07:06→23:32)
[2023-02-23 07:29] LABS: HEMATOCRIT 29.5 % (42-54); MEAN CORPUSCULAR HEMOGLOBIN 31.6 pg (27.0-33.0); MEAN CORPUSCULAR HGB CONC 33.2 g/dL (32.0-36.0); MEAN CORPUSCULAR VOLUME 95.2 fL (79-99); NUCLEATED RED BLOOD CELLS 0.5 % (0.0-0.19); RED BLOOD CELL COUNT(AUTO) 3.1 MIL/uL (4.50-6.20); RED CELL DISTRIBUTION WIDTH 15.9 % (11.0-15.5); WHITE BLOOD COUNT (AUTO) 18.7 K/uL (4.8-10.8)
[2023-02-23] MEDS: BISACODYL 5 MG TABLET.DR PO SCH (07:51)
[2023-02-23] MEDS: POLYETHYLENE GLYCOL 3350 17 GM POWD.PACK PO SCH (07:51)
[2023-02-23 07:52] LABS: ALBUMIN 1.8 g/dL (3.5-5.0); BILIRUBIN,TOTAL 0.4 mg/dL (0.2-1.0); CREATININE 0.6 mg/dL (0.5-1.5); MAGNESIUM 2.1 mg/dL (1.80-2.40); POTASSIUM 3.3 mmol/L (3.5-5.1); TOTAL PROTEIN, SERUM 5.4 g/dL (6.0-8.3)
[2023-02-23] MEDS: VANCOMYCIN 1G/250ML KIT 250 ML IV SCH ×2 (08:02→21:30)
[2023-02-23] MEDS: ENOXAPARIN SODIUM 40 MG/0.4 ML SYRINGE SQ SCH (08:02)
[2023-02-23] MEDS: PYRIDOXINE HCL 50 MG TABLET PO SCH ×2 (08:02→21:36)
[2023-02-23] MEDS: SOLU-MEDROL 40MG VIAL IVP SCH ×2 (08:02→21:30)
[2023-02-23] MEDS: BACLOFEN 10 MG TABLET PEG SCH ×2 (08:03→21:36)
[2023-02-23] MEDS: FAMOTIDINE 20MG TAB PEG SCH (08:03)
[2023-02-23] MEDS: LEVETIRACETAM 500 MG TABLET PO SCH ×2 (08:03→21:35)
[2023-02-23] MEDS: BUSPIRONE HCL 5 MG TABLET PO SCH ×3 (08:09→21:35)
[2023-02-23] MEDS: DEXTROSE 5% IV SCH (12:25)
[2023-02-23] MEDS: WATER IV SCH (12:25)
[2023-02-23] MEDS: POTASSIUM CHLORIDE IV SCH (12:25)
[2023-02-23] MEDS: LEVOFLOXACIN 500 MG/D5W 100 ML 100 ML IV SCH (20:39)
[2023-02-23] MEDS: MEROPENEM 1 GM in 0.9%NACL 100ML 100 ML IVPB SCH (21:30)
[2023-02-23] MEDS: ARTIFICIAL TEARS 3.5 GM OINTMENT OU SCH (21:32)
[2023-02-23] MEDS: POTASSIUM CHLORIDE 10% ELIXIR 20 MEQ/15 ML UDCUP PO PRN (21:36)
[2023-02-24] VITALS (17 sets, daily range): BP systolic 112–149; BP diastolic 55–81; PULSE 66–90; RESP 18–37; O2SAT 93–100
[2023-02-24] MEDS: MEROPENEM 1 GM in 0.9%NACL 100ML 100 ML IVPB SCH ×3 (03:00→18:54)
[2023-02-24] MEDS: CHLORHEXIDINE GLUCONATE 473 ML MOUTHWASH MM SCH ×4 (03:00→17:19)
[2023-02-24 04:19] LABS: ABG HCO3 30.1 mmol/L (21.0-28.0); ABG PCO2 62 mmHg (35-48); ABG PH 7.303 (7.35-7.450); PO2, ARTERIAL BG 90.9 mmHg (83.0-108.0); VENT MODE, BG BIPAP 12-6 (ROOM AIR)
[2023-02-24 04:39] LABS: HEMATOCRIT 30.7 % (42-54); MEAN CORPUSCULAR HEMOGLOBIN 32.1 pg (27.0-33.0); MEAN CORPUSCULAR HGB CONC 32.9 g/dL (32.0-36.0); MEAN CORPUSCULAR VOLUME 97.5 fL (79-99); NUCLEATED RED BLOOD CELLS 0.4 % (0.0-0.19); RED BLOOD CELL COUNT(AUTO) 3.15 MIL/uL (4.50-6.20); RED CELL DISTRIBUTION WIDTH 15.7 % (11.0-15.5)
[2023-02-24 04:50] LABS: CREATININE 0.6 mg/dL (0.5-1.5); POTASSIUM 3.7 mmol/L (3.5-5.1)
[2023-02-24] MEDS: POTASSIUM CHLORIDE 10% ELIXIR 20 MEQ/15 ML UDCUP PO PRN (05:21)
[2023-02-24] MEDS: IPRATROPIUM 0.5 MG/2.5 ML INH IH SCH ×3 (07:01→18:36)
[2023-02-24] MEDS: ACETYLCYSTEINE 10% 100MG/ML 4ML VIAL IH SCH ×3 (07:01→18:36)
[2023-02-24] MEDS: LEVETIRACETAM 500 MG TABLET PO SCH ×2 (10:14→20:03)
[2023-02-24] MEDS: SOLU-MEDROL 40MG VIAL IVP SCH ×2 (10:14→19:59)
[2023-02-24] MEDS: BISACODYL 10 MG SUPP.RECT RC SCH (10:14)
[2023-02-24] MEDS: PYRIDOXINE HCL 50 MG TABLET PO SCH ×2 (10:14→20:03)
[2023-02-24] MEDS: POLYETHYLENE GLYCOL 3350 17 GM POWD.PACK PO SCH (10:15)
[2023-02-24] MEDS: FAMOTIDINE 20MG TAB PEG SCH (10:15)
[2023-02-24] MEDS: ENOXAPARIN SODIUM 40 MG/0.4 ML SYRINGE SQ SCH (10:16)
[2023-02-24] MEDS: BACLOFEN 10 MG TABLET PEG SCH ×2 (10:16→20:03)
[2023-02-24] MEDS: BUSPIRONE HCL 5 MG TABLET PO SCH ×3 (10:19→20:03)
[2023-02-24] MEDS: VANCOMYCIN 1G/250ML KIT 250 ML IV SCH ×2 (11:00→20:00)
[2023-02-24] MEDS ORDERED: COMPOUND IV REFRIGERATED 1 EACH IVSOLN MISC PRN ×2 (11:00→12:00)
[2023-02-24] MEDS ORDERED: COMPOUND IV MISC 1 EACH IVSOLN MISC PRN (12:00)
[2023-02-24] MEDS: POTASSIUM CHLORIDE IV SCH (14:01)
[2023-02-24] MEDS: DEXTROSE 5% IV SCH (14:01)
[2023-02-24] MEDS: WATER IV SCH (14:01)
[2023-02-24] MEDS: LEVOFLOXACIN 500 MG/D5W 100 ML 100 ML IV SCH (18:23)
[2023-02-24] MEDS: ARTIFICIAL TEARS 3.5 GM OINTMENT OU SCH (20:03)
[2023-02-25] VITALS (16 sets, daily range): BP systolic 102–134; BP diastolic 62–77; PULSE 62–87; RESP 20–35; O2SAT 91–96
[2023-02-25] MEDS: IPRATROPIUM 0.5 MG/2.5 ML INH IH SCH ×5 (00:55→23:18)
[2023-02-25] MEDS: ACETYLCYSTEINE 10% 100MG/ML 4ML VIAL IH SCH ×5 (00:55→23:18)
[2023-02-25] MEDS: MEROPENEM 1 GM in 0.9%NACL 100ML 100 ML IVPB SCH ×3 (02:31→18:15)
[2023-02-25] MEDS: CHLORHEXIDINE GLUCONATE 473 ML MOUTHWASH MM SCH ×4 (02:31→18:17)
[2023-02-25] MEDS: POTASSIUM CHLORIDE IV SCH (02:32)
[2023-02-25] MEDS: WATER IV SCH (02:32)
[2023-02-25] MEDS: DEXTROSE 5% IV SCH (02:32)
[2023-02-25] MEDS: FAMOTIDINE 20MG TAB PEG SCH (09:59)
[2023-02-25] MEDS: POLYETHYLENE GLYCOL 3350 17 GM POWD.PACK PO SCH (09:59)
[2023-02-25] MEDS: BUSPIRONE HCL 5 MG TABLET PO SCH ×3 (09:59→20:17)
[2023-02-25] MEDS: PYRIDOXINE HCL 50 MG TABLET PO SCH ×2 (09:59→20:17)
[2023-02-25] MEDS: LEVETIRACETAM 500 MG TABLET PO SCH ×2 (09:59→20:17)
[2023-02-25] MEDS: SOLU-MEDROL 40MG VIAL IVP SCH ×2 (09:59→20:17)
[2023-02-25] MEDS: BACLOFEN 10 MG TABLET PEG SCH ×2 (09:59→20:16)
[2023-02-25] MEDS: ENOXAPARIN SODIUM 40 MG/0.4 ML SYRINGE SQ SCH (10:00)
[2023-02-25] MEDS: BISACODYL 10 MG SUPP.RECT RC SCH (10:00)
[2023-02-25] MEDS: VANCOMYCIN 1G/250ML KIT 250 ML IV SCH ×2 (10:01→20:16)
[2023-02-25] MEDS ORDERED: FUROSEMIDE 40MG VIAL IV ONE (11:30)
[2023-02-25 12:11] LABS: BASOPHILS # (AUTO) 0.02 K/uL (0.00-0.20); BASOPHILS % (AUTO) 0.2 % (0.0-5.0); HEMATOCRIT 30.3 % (42-54); IMMATURE GRANULOCYTE ABSOLUTE 0.35 K/uL (0-1); LYMPHOCYTES # (AUTO) 0.9 K/uL (1.0-4.8); LYMPHOCYTES % (AUTO) 6.8 % (21.0-51.0); MEAN CORPUSCULAR HEMOGLOBIN 32.5 pg (27.0-33.0); MEAN CORPUSCULAR HGB CONC 33.7 g/dL (32.0-36.0); MEAN CORPUSCULAR VOLUME 96.5 fL (79-99); MONOCYTES # (AUTO) 0.9 K/uL (0.1-1.0); MONOCYTES % (AUTO) 6.8 % (3.0-13.0); NEUTROPHILS # (AUTO) 10.6 K/uL (1.8-7.7); NEUTROPHILS % (AUTO) 83.4 % (40.0-77.0); NUCLEATED RED BLOOD CELLS 0.3 % (0.0-0.19); PLATELET COUNT (AUTO) 116 K/uL (130-400); RED BLOOD CELL COUNT(AUTO) 3.14 MIL/uL (4.50-6.20); RED CELL DISTRIBUTION WIDTH 15.1 % (11.0-15.5); WHITE BLOOD COUNT (AUTO) 12.7 K/uL (4.8-10.8)
[2023-02-25 12:22] LABS: CREATININE 0.5 mg/dL (0.5-1.5); MAGNESIUM 2.1 mg/dL (1.80-2.40)
[2023-02-25] MEDS: LEVOFLOXACIN 500 MG/D5W 100 ML 100 ML IV SCH (18:15)
[2023-02-25] MEDS: ARTIFICIAL TEARS 3.5 GM OINTMENT OU SCH (20:41)
[2023-02-26] VITALS (14 sets, daily range): BP systolic 106–139; BP diastolic 63–76; PULSE 64–89; RESP 18–28; O2SAT 93–98
[2023-02-26] MEDS: CHLORHEXIDINE GLUCONATE 473 ML MOUTHWASH MM SCH ×5 (03:34→23:20)
[2023-02-26] MEDS: MEROPENEM 1 GM in 0.9%NACL 100ML 100 ML IVPB SCH ×3 (03:34→18:06)
[2023-02-26] MEDS: POTASSIUM CHLORIDE IV SCH ×2 (06:14→18:07)
[2023-02-26] MEDS: WATER IV SCH ×2 (06:14→18:07)
[2023-02-26] MEDS: DEXTROSE 5% IV SCH ×2 (06:14→18:07)
[2023-02-26] MEDS: ACETYLCYSTEINE 10% 100MG/ML 4ML VIAL IH SCH ×4 (06:28→23:29)
[2023-02-26] MEDS: IPRATROPIUM 0.5 MG/2.5 ML INH IH SCH ×4 (06:28→23:29)
[2023-02-26 07:52] LABS: BASOPHILS # (AUTO) 0.04 K/uL (0.00-0.20); BASOPHILS % (AUTO) 0.3 % (0.0-5.0); EOSINOPHILS # (AUTO) 0.09 K/uL (0.00-0.70); EOSINOPHILS % (AUTO) 0.7 % (0.0-8.0); HEMATOCRIT 32.8 % (42-54); IMMATURE GRANULOCYTE ABSOLUTE 0.11 K/uL (0-1); LYMPHOCYTES # (AUTO) 0.6 K/uL (1.0-4.8); LYMPHOCYTES % (AUTO) 4.4 % (21.0-51.0); MEAN CORPUSCULAR HEMOGLOBIN 30.7 pg (27.0-33.0); MEAN CORPUSCULAR VOLUME 95.9 fL (79-99); MONOCYTES # (AUTO) 1.5 K/uL (0.1-1.0); MONOCYTES % (AUTO) 10.8 % (3.0-13.0); NEUTROPHILS # (AUTO) 11.4 K/uL (1.8-7.7); PLATELET COUNT (AUTO) 399 K/uL (130-400); RED BLOOD CELL COUNT(AUTO) 3.42 MIL/uL (4.50-6.20); RED CELL DISTRIBUTION WIDTH 15.1 % (11.0-15.5); WHITE BLOOD COUNT (AUTO) 13.8 K/uL (4.8-10.8)
[2023-02-26] MEDS: VANCOMYCIN 1G/250ML KIT 250 ML IV SCH ×2 (09:37→23:10)
[2023-02-26] MEDS: FAMOTIDINE 20MG TAB PEG SCH (10:04)
[2023-02-26] MEDS: BACLOFEN 10 MG TABLET PEG SCH ×2 (10:04→23:10)
[2023-02-26] MEDS: LEVETIRACETAM 500 MG TABLET PO SCH ×2 (10:04→23:10)
[2023-02-26] MEDS: PYRIDOXINE HCL 50 MG TABLET PO SCH ×2 (10:04→23:11)
[2023-02-26] MEDS: BUSPIRONE HCL 5 MG TABLET PO SCH ×3 (10:04→23:11)
[2023-02-26] MEDS: SOLU-MEDROL 40MG VIAL IVP SCH ×2 (10:04→23:10)
[2023-02-26] MEDS: FUROSEMIDE 40MG VIAL IV SCH (10:04)
[2023-02-26] MEDS: POLYETHYLENE GLYCOL 3350 17 GM POWD.PACK PO SCH (10:04)
[2023-02-26] MEDS: ENOXAPARIN SODIUM 40 MG/0.4 ML SYRINGE SQ SCH (10:05)
[2023-02-26] MEDS: BISACODYL 10 MG SUPP.RECT RC SCH (10:05)
[2023-02-26 10:18] LABS: CREATININE 0.5 mg/dL (0.5-1.5); POTASSIUM 3.7 mmol/L (3.5-5.1)
[2023-02-26] MEDS: LEVOFLOXACIN 500 MG/D5W 100 ML 100 ML IV SCH (18:06)
[2023-02-26] MEDS: LACTULOSE 20 GM/30 ML UDCUP PO SCH (23:11)
[2023-02-26] MEDS: ARTIFICIAL TEARS 3.5 GM OINTMENT OU SCH (23:20)
[2023-02-27] VITALS (9 sets, daily range): BP systolic 123; BP diastolic 67; PULSE 72–85; RESP 18–32; O2SAT 90–96
[2023-02-27] MEDS: WATER IV SCH (03:03)
[2023-02-27] MEDS: MEROPENEM 1 GM in 0.9%NACL 100ML 100 ML IVPB SCH ×2 (03:03→19:00)
[2023-02-27] MEDS: POTASSIUM CHLORIDE IV SCH (03:03)
[2023-02-27] MEDS: DEXTROSE 5% IV SCH (03:03)
[2023-02-27 03:29] LABS: HEMATOCRIT 30.6 % (42-54); MEAN CORPUSCULAR HEMOGLOBIN 32.4 pg (27.0-33.0); MEAN CORPUSCULAR HGB CONC 33.7 g/dL (32.0-36.0); MEAN CORPUSCULAR VOLUME 96.2 fL (79-99); RED BLOOD CELL COUNT(AUTO) 3.18 MIL/uL (4.50-6.20); WHITE BLOOD COUNT (AUTO) 13.1 K/uL (4.8-10.8)
[2023-02-27 03:36] LABS: CREATININE 0.4 mg/dL (0.5-1.5); POTASSIUM 3.3 mmol/L (3.5-5.1)
[2023-02-27] MEDS: FAMOTIDINE 20MG TAB PEG SCH (09:00)
[2023-02-27] MEDS: BISACODYL 10 MG SUPP.RECT RC SCH (09:00)
[2023-02-27] MEDS: ENOXAPARIN SODIUM 40 MG/0.4 ML SYRINGE SQ SCH (09:00)
[2023-02-27] MEDS: POLYETHYLENE GLYCOL 3350 17 GM POWD.PACK PO SCH (09:00)
[2023-02-27] MEDS: FUROSEMIDE 40MG VIAL IV SCH (09:00)
[2023-02-27] MEDS: LEVOFLOXACIN 500 MG/D5W 100 ML 100 ML IV SCH (19:00)
[2023-02-27] MEDS: VANCOMYCIN 1G/250ML KIT 250 ML IV SCH (20:00)
[2023-02-27] MEDS: LACTULOSE 20 GM/30 ML UDCUP PO SCH (21:00)
[2023-02-27] MEDS: BUSPIRONE HCL 5 MG TABLET PO SCH (21:00)
[2023-02-27] MEDS: SOLU-MEDROL 40MG VIAL IVP SCH (21:00)
[2023-02-27] MEDS: LEVETIRACETAM 500 MG TABLET PO SCH (21:00)
[2023-02-27] MEDS: ARTIFICIAL TEARS 3.5 GM OINTMENT OU SCH (21:00)
[2023-02-27] MEDS: BACLOFEN 10 MG TABLET PEG SCH (21:00)
[2023-02-27] MEDS: PYRIDOXINE HCL 50 MG TABLET PO SCH (21:00)
[2023-02-28] VITALS (16 sets, daily range): BP systolic 105–135; BP diastolic 55–78; PULSE 68–94; RESP 18–34; O2SAT 90–94
[2023-02-28] MEDS: MEROPENEM 1 GM in 0.9%NACL 100ML 100 ML IVPB SCH ×3 (03:25→18:09)
[2023-02-28] MEDS: CHLORHEXIDINE GLUCONATE 473 ML MOUTHWASH MM SCH ×4 (06:48→17:20)
[2023-02-28] MEDS: IPRATROPIUM 0.5 MG/2.5 ML INH IH SCH ×4 (07:21→23:39)
[2023-02-28] MEDS: ACETYLCYSTEINE 10% 100MG/ML 4ML VIAL IH SCH ×4 (07:21→23:39)
[2023-02-28 07:42] LABS: HEMATOCRIT 30.6 % (42-54); MEAN CORPUSCULAR HEMOGLOBIN 32.4 pg (27.0-33.0); MEAN CORPUSCULAR HGB CONC 33.7 g/dL (32.0-36.0); MEAN CORPUSCULAR VOLUME 96.2 fL (79-99); RED BLOOD CELL COUNT(AUTO) 3.18 MIL/uL (4.50-6.20); RED CELL DISTRIBUTION WIDTH 14.8 % (11.0-15.5); WHITE BLOOD COUNT (AUTO) 16.8 K/uL (4.8-10.8)
[2023-02-28 08:00] LABS: CREATININE 0.4 mg/dL (0.5-1.5); POTASSIUM 3.7 mmol/L (3.5-5.1)
[2023-02-28] MEDS ORDERED: PHARMACY COMMUNICATION MISC SCH (08:00)
[2023-02-28] MEDS: WATER IV SCH (08:02)
[2023-02-28] MEDS: DEXTROSE 5% IV SCH (08:02)
[2023-02-28] MEDS: POTASSIUM CHLORIDE IV SCH (08:02)
[2023-02-28] MEDS: VANCOMYCIN 1G/250ML KIT 250 ML IV SCH ×2 (08:58→21:11)
[2023-02-28] MEDS: LEVETIRACETAM 500 MG TABLET PO SCH ×2 (08:59→21:12)
[2023-02-28] MEDS: ENOXAPARIN SODIUM 40 MG/0.4 ML SYRINGE SQ SCH (08:59)
[2023-02-28] MEDS: FUROSEMIDE 40MG VIAL IV SCH (08:59)
[2023-02-28] MEDS: POLYETHYLENE GLYCOL 3350 17 GM POWD.PACK PO SCH (08:59)
[2023-02-28] MEDS: BACLOFEN 10 MG TABLET PEG SCH ×2 (08:59→21:12)
[2023-02-28] MEDS: SOLU-MEDROL 40MG VIAL IVP SCH ×2 (09:00→21:12)
[2023-02-28] MEDS: PYRIDOXINE HCL 50 MG TABLET PO SCH ×2 (09:00→21:12)
[2023-02-28] MEDS: BUSPIRONE HCL 5 MG TABLET PO SCH ×3 (09:00→21:12)
[2023-02-28] MEDS: FAMOTIDINE 20MG TAB PEG SCH (09:00)
[2023-02-28] MEDS: BISACODYL 10 MG SUPP.RECT RC SCH (09:01)
[2023-02-28] MEDS: POTASSIUM CHLORIDE 10% ELIXIR 20 MEQ/15 ML UDCUP PO PRN ×2 (11:21→12:55)
[2023-02-28] MEDS: LEVOFLOXACIN 500 MG/D5W 100 ML 100 ML IV SCH (18:07)
[2023-02-28] MEDS: LACTULOSE 20 GM/30 ML UDCUP PO SCH (21:12)
[2023-02-28] MEDS: ARTIFICIAL TEARS 3.5 GM OINTMENT OU SCH (21:13)
[2023-03-01] VITALS (10 sets, daily range): BP systolic 111–134; BP diastolic 63–73; PULSE 82–93; RESP 17–28; O2SAT 93–95
[2023-03-01] MEDS: MEROPENEM 1 GM in 0.9%NACL 100ML 100 ML IVPB SCH (03:22)
[2023-03-01] MEDS: CHLORHEXIDINE GLUCONATE 473 ML MOUTHWASH MM SCH ×2 (03:29→06:14)
[2023-03-01] MEDS: DEXTROSE 5% IV SCH (03:33)
[2023-03-01] MEDS: POTASSIUM CHLORIDE IV SCH (03:33)
[2023-03-01] MEDS: WATER IV SCH (03:33)
[2023-03-01 03:47] LABS: HEMATOCRIT 30.4 % (42-54); MEAN CORPUSCULAR HEMOGLOBIN 32.5 pg (27.0-33.0); MEAN CORPUSCULAR HGB CONC 33.6 g/dL (32.0-36.0); MEAN CORPUSCULAR VOLUME 96.8 fL (79-99); RED BLOOD CELL COUNT(AUTO) 3.14 MIL/uL (4.50-6.20); RED CELL DISTRIBUTION WIDTH 15.1 % (11.0-15.5); WHITE BLOOD COUNT (AUTO) 12.6 K/uL (4.8-10.8)
[2023-03-01 04:00] LABS: CREATININE 0.4 mg/dL (0.5-1.5); POTASSIUM 4.4 mmol/L (3.5-5.1)
[2023-03-01] MEDS: ACETYLCYSTEINE 10% 100MG/ML 4ML VIAL IH SCH ×2 (06:37→10:55)
[2023-03-01] MEDS: IPRATROPIUM 0.5 MG/2.5 ML INH IH SCH ×2 (06:37→10:55)
[2023-03-01] MEDS: VANCOMYCIN 1G/250ML KIT 250 ML IV SCH (10:16)
[2023-03-01] MEDS: ENOXAPARIN SODIUM 40 MG/0.4 ML SYRINGE SQ SCH (10:17)
[2023-03-01] MEDS: POLYETHYLENE GLYCOL 3350 17 GM POWD.PACK PO SCH (10:17)
[2023-03-01] MEDS: FUROSEMIDE 40MG VIAL IV SCH (10:18)
[2023-03-01] MEDS: BUSPIRONE HCL 5 MG TABLET PO SCH (10:18)
[2023-03-01] MEDS: BISACODYL 10 MG SUPP.RECT RC SCH (10:18)
[2023-03-01] MEDS: SOLU-MEDROL 40MG VIAL IVP SCH (10:18)
[2023-03-01] MEDS: BACLOFEN 10 MG TABLET PEG SCH (10:18)
[2023-03-01] MEDS: PYRIDOXINE HCL 50 MG TABLET PO SCH (10:18)
[2023-03-01] MEDS: FAMOTIDINE 20MG TAB PEG SCH (10:18)
[2023-03-01] MEDS: LEVETIRACETAM 500 MG TABLET PO SCH (10:18)
== END 2023-03-01 10:59 | disposition hospice, inpatient (51) | DRG 871 ==
LOC: EDH 17:11 → EDHIP 20:27 → 2BH 02-20 00:15 → 2DH 02-21 14:48
PROVIDERS: ADMIT Internal Medicine; ATTEND Internal Medicine
PROC: 02HV33Z Insertion of Infusion Device into Superior Vena Cava, Percutaneous Approach (ICD-10-PCS; principal; 2023-02-20)
PROC: 5A09357 Assistance with Respiratory Ventilation, Less than 24 Consecutive Hours, Continuous Positive Airway Pressure (ICD-10-PCS; 2023-02-23)
PROC: 5A09357 Assistance with Respiratory Ventilation, Less than 24 Consecutive Hours, Continuous Positive Airway Pressure (ICD-10-PCS; 2023-02-24)
PROC: 5A09357 Assistance with Respiratory Ventilation, Less than 24 Consecutive Hours, Continuous Positive Airway Pressure (ICD-10-PCS; 2023-02-25)
PROC: 5A09357 Assistance with Respiratory Ventilation, Less than 24 Consecutive Hours, Continuous Positive Airway Pressure (ICD-10-PCS; 2023-02-26)
PROC: 5A09357 Assistance with Respiratory Ventilation, Less than 24 Consecutive Hours, Continuous Positive Airway Pressure (ICD-10-PCS; 2023-02-27)
PROC: 5A09357 Assistance with Respiratory Ventilation, Less than 24 Consecutive Hours, Continuous Positive Airway Pressure (ICD-10-PCS; 2023-02-28)
DX: A41.9 Sepsis, unspecified organism (principal); E43 Unspecified severe protein-calorie malnutrition; R65.21 Severe sepsis with septic shock; N17.0 Acute kidney failure with tubular necrosis; J69.0 Pneumonitis due to inhalation of food and vomit; J96.21 Acute and chronic respiratory failure with hypoxia; J96.22 Acute and chronic respiratory failure with hypercapnia; R53.2 Functional quadriplegia; F13.20 Sedative, hypnotic or anxiolytic dependence, uncomplicated; E87.0 Hyperosmolality and hypernatremia; M62.82 Rhabdomyolysis; N30.00 Acute cystitis without hematuria; R64 Cachexia; Z20.822 Contact with and (suspected) exposure to COVID-19; D69.6 Thrombocytopenia, unspecified; E78.2 Mixed hyperlipidemia; D63.8 Anemia in other chronic diseases classified elsewhere; F41.9 Anxiety disorder, unspecified; Z66 Do not resuscitate; G40.909 Epilepsy, unspecified, not intractable, without status epilepticus; Z51.5 Encounter for palliative care; Z74.01 Bed confinement status; Z88.0 Allergy status to penicillin; Z93.1 Gastrostomy status; Z99.3 Dependence on wheelchair; Z68.27 Body mass index [BMI] 27.0-27.9, adult
CPT/HCPCS: 31720; 36415; 36600; 71045; 71250; 74018; 80048; 80053; 80177; 80202; 81001; 82550; 82607; 82728; 82803; 82948; 83605; 83735; 83874; 83880; 84100; 84484; 85007; 85025; 85027; 85378; 85610; 85730; 87040; 87071; 87077; 87088; 87186; 87205; 87635; 87804; 87880; 93005; 93970; 94640; 94660; 94664; 94667; 94668; 94760; 99291; A4606; C1751; C1894; C9803; G0378; J0692; J1650; J1940; J1953; J1956; J2060; J2185; J2920; J2930; J3370; J3480; J3490; J7070; J7608